=== PATIENT | male | born 1990 | race Caucasian/White ===

== ENCOUNTER 2020-01-24 00:40 | Emergency (ER) | payer MEDICAID, SELFPAY ==
[2020-01-24 01:14] VITALS: BP 133/98; PULSE 115; RESP 18; TEMP 36.7; O2SAT 96; BMI 37.3
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
[2020-01-24 01:25] VITALS: BP 133/98; PULSE 115; RESP 18; TEMP 36.7; O2SAT 96
--- NOTE | 2020-01-24 01:50 | PC.NURSE ---
GEORGESN faxed and called. PT asked if he would agree to a psych consult over the phone. PT agreed. Waiting to speak with SANDRO.
[2020-01-24] MEDS: hydrOXYzine HCL 25 MG TABLET PO (03:18)
--- NOTE | 2020-01-24 06:14 | PC.NURSE ---
PT stated that he wants to be discharged so he can go stay at a hotel with his girlfriend. PT wanted to leave and walk to [place]. Provider spoke with PT and convinced him to wait until morning when he could get a ride.
--- NOTE | 2020-01-24 06:54 | PC.NURSE ---
Report recevied. Pt currently sleeping, respirations even and unlabored, in no apparent distress. PT to be discharged this morning.
[2020-01-24 09:47] VITALS: BP 123/60; PULSE 95; RESP 18; TEMP 37.2; O2SAT 97
== END 2020-01-24 13:07 | disposition home or self-care (01) ==
PROVIDERS: Emergency Provider Emergency Medicine
DX: F43.10 Post-traumatic stress disorder, unspecified (principal)
CPT/HCPCS: 99284